=== PATIENT | female | born 1930 | race Caucasian/White ===

== ENCOUNTER 2018-10-18 09:25 | Inpatient (IN) ==
[2018-10-18] MEDS ORDERED: ONDANSETRON 4 MG/2 ML VIAL IV STA (10:14)
[2018-10-18] MEDS ORDERED: ONDANSETRON 4 MG/2 ML VIAL ONE (10:16)
[2018-10-18 11:18] LABS: Basophils % 0.2 % (0.0-0.8); Hematocrit 35.2 VOL% (35.7-47.0); Hemoglobin 12.8 GM/DL (12.0-16.0); Immature Granulocytes % 0.7 %; Immature Granulocytes Absolute 0.04 #; Lymphocytes # 0.6 10*3/uL (1.4-4.0); Lymphocytes % 9.7 % (21.3-54.2); Mean Corpuscular HGB Conc 36.4 GM/DL (32-36); Mean Corpuscular Hemoglobin 29 PG (27-34); Mean Corpuscular Volume 79.8 FL (87-102); Monocytes # 0.3 10*3/uL (0.11-0.8); Monocytes % 4.9 % (1.7-12.7); Neutrophils # 5.2 10*3/uL (1.4-7.4); Neutrophils % 84.5 % (38.7-73.9); Platelet Count 209 T/CUMM (130-400); Red Blood Count 4.41 MC/CUMM (3.8-5.5); Red Cell Distribution Width 12.5 % (9.3-17.3); White Blood Count 6.1 T/CUMM (4-12)
[2018-10-18 11:34] LABS: Bilirubin,Total 0.6 MG/DL (0.2-1.0); Calcium 9.8 MG/DL (8.5-10.1); Osmolality,Calculated 232.2 MOS/KG (273-304); Potassium 3.4 MMOL/L (3.5-5.1)
[2018-10-18] MEDS ORDERED: SODIUM CHLORIDE 0.9% 500 ML IV STA (11:53)
[2018-10-18 12:10] LABS: Apearance,Urine CLEAR (Clear); Bilirubin,Urine Negative (Negative); Blood, Urine Negative (Negative); Glucose,Urine (UA) Negative (Negative); Ketones,Urine 20 mg/dL (Negative); Mucus,Urine Occasional /LPF (Occasional); Nitrite,Urine Negative (Negative); Protein,Urine 100 MG/DL; RBC,Urine 1 /HPF (0-4); Squamous Epithelial Cell,Urine Occasional /HPF (0-10); Urine Color Yellow (Yellow); Urine Specific Gravity 1.015 (1.001-1.035); Urine Urobilinogen < 2.0 EU/DL (0.2-1.0); WBC,Urine 1 /HPF (0-6)
[2018-10-18] MEDS ORDERED: ACETAMINOPHEN 325 MG TABLET PO PRN (12:20)
[2018-10-18] MEDS ORDERED: PROMETHAZINE 25 MG TABLET PO PRN (12:20)
[2018-10-18] MEDS ORDERED: POTASSIUM CHLORIDE 20 MEQ TABLET PO STA (12:31)
[2018-10-18] MEDS: SODIUM CHLORIDE 0.9% 1,000 ML IV SCH (13:30)
[2018-10-18] MEDS ORDERED: MAGNESIUM SULF RIDER 2 GM in PREMIX 1 EACH IV ONE (13:31)
[2018-10-18] MEDS ORDERED: MAGNESIUM SULF RIDER 4 GM in PREMIX 1 EACH IV PRN (13:38)
[2018-10-18] MEDS ORDERED: POTASSIUM CHLORIDE RIDER 10 MEQ in PREMIX 1 EACH IV PRN (13:38)
[2018-10-18] MEDS ORDERED: MAGNESIUM SULF RIDER 2 GM in PREMIX 1 EACH IV PRN (13:38)
[2018-10-18] MEDS ORDERED: amLODIPine 10 MG TABLET PO ONE (14:18)
[2018-10-18] MEDS: NEBIVOLOL 5 MG TABLET PO SCH (15:02)
[2018-10-18] MEDS: hydrALAZINE 25 MG TABLET PO SCH (18:13)
[2018-10-18 18:53] LABS: Calcium 9.2 MG/DL (8.5-10.1)
[2018-10-18] MEDS: DOCUSATE SODIUM 100 MG CAPSULE PO SCH (20:47)
[2018-10-18] MEDS: ATORVASTATIN 40 MG TABLET PO SCH (20:47)
[2018-10-18] MEDS: OMEGA 3 ACID ETHYL ESTERS 1 GM CAPSULE PO SCH (20:47)
[2018-10-19] MEDS: SODIUM CHLORIDE 0.9% 1,000 ML IV SCH ×3 (00:15→16:57)
[2018-10-19 05:30] LABS: Basophils % 0.2 % (0.0-0.8); Eosinophils % 0.6 % (0.00-10.9); Hematocrit 29.3 VOL% (35.7-47.0); Hemoglobin 10.5 GM/DL (12.0-16.0); Immature Granulocytes % 0.4 %; Immature Granulocytes Absolute 0.02 #; Lymphocytes # 1.2 10*3/uL (1.4-4.0); Lymphocytes % 22.8 % (21.3-54.2); Mean Corpuscular HGB Conc 35.8 GM/DL (32-36); Mean Corpuscular Hemoglobin 29 PG (27-34); Mean Corpuscular Volume 81.4 FL (87-102); Mean Platelet Volume 9.4 FL (9.6-12.0); Monocytes # 0.5 10*3/uL (0.11-0.8); Monocytes % 10.1 % (1.7-12.7); Neutrophils # 3.5 10*3/uL (1.4-7.4); Neutrophils % 65.9 % (38.7-73.9); Platelet Count 188 T/CUMM (130-400); Red Cell Distribution Width 12.8 % (9.3-17.3); White Blood Count 5.4 T/CUMM (4-12)
[2018-10-19] MEDS: LEVOTHYROXINE 88 MCG TABLET PO SCH (05:33)
[2018-10-19 05:46] LABS: Calcium 8.3 MG/DL (8.5-10.1); Osmolality,Calculated 245.1 MOS/KG (273-304); Potassium 3.6 MMOL/L (3.5-5.1)
[2018-10-19] MEDS ORDERED: ISOSORBIDE MONONITRATE 30 MG TABLET PO SCH (09:00)
[2018-10-19] MEDS ORDERED: amLODIPine 10 MG TABLET PO SCH (09:00)
[2018-10-19] MEDS: DOCUSATE SODIUM 100 MG CAPSULE PO SCH ×2 (09:33→20:38)
[2018-10-19] MEDS: VITAMIN E 400 UNIT CAPSULE PO SCH (09:33)
[2018-10-19] MEDS: MULTIVITAMIN (CENTRUM) TABLET PO SCH (09:33)
[2018-10-19] MEDS: CHOLECALCIFEROL 1,000 UNIT TABLET PO SCH (09:33)
[2018-10-19] MEDS: NEBIVOLOL 5 MG TABLET PO SCH (09:33)
[2018-10-19] MEDS: hydrALAZINE 25 MG TABLET PO SCH ×3 (09:33→16:54)
[2018-10-19] MEDS: ASCORBIC ACID 500 MG TABLET PO SCH (09:34)
[2018-10-19] MEDS: PANTOPRAZOLE 40 MG TABLET PO SCH (09:34)
[2018-10-19] MEDS: CLOPIDOGREL 75 MG TABLET PO SCH (09:34)
[2018-10-19] MEDS: CYANOCOBALAMIN 500 MCG TABLET PO SCH (09:34)
[2018-10-19] MEDS: LOSARTAN 50 MG TABLET PO SCH (09:34)
[2018-10-19] MEDS: POLYETHYLENE GLYCOL POWDER 17 GM PACK PO SCH (13:51)
[2018-10-19] MEDS ORDERED: LOSARTAN 50 MG TABLET PO ONE (14:19)
[2018-10-19] MEDS: DILTIAZEM 30 MG TABLET PO SCH ×2 (16:54→20:37)
[2018-10-19] MEDS: OMEGA 3 ACID ETHYL ESTERS 1 GM CAPSULE PO SCH (20:38)
[2018-10-19] MEDS: ATORVASTATIN 40 MG TABLET PO SCH (20:38)
[2018-10-20] MEDS: SODIUM CHLORIDE 0.9% 1,000 ML IV SCH ×2 (00:10→08:13)
[2018-10-20 05:14] LABS: Basophils % 0.3 % (0.0-0.8); Eosinophils % 0.4 % (0.00-10.9); Hematocrit 31.5 VOL% (35.7-47.0); Immature Granulocytes % 0.4 %; Immature Granulocytes Absolute 0.03 #; Lymphocytes # 1.3 10*3/uL (1.4-4.0); Lymphocytes % 18.5 % (21.3-54.2); Mean Corpuscular HGB Conc 34.9 GM/DL (32-36); Mean Corpuscular Hemoglobin 29 PG (27-34); Mean Corpuscular Volume 83.1 FL (87-102); Mean Platelet Volume 9.6 FL (9.6-12.0); Monocytes # 0.5 10*3/uL (0.11-0.8); Monocytes % 7.7 % (1.7-12.7); Neutrophils % 72.7 % (38.7-73.9); Platelet Count 188 T/CUMM (130-400); Red Blood Count 3.79 MC/CUMM (3.8-5.5); Red Cell Distribution Width 13.4 % (9.3-17.3); White Blood Count 6.9 T/CUMM (4-12)
[2018-10-20 05:44] LABS: Calcium 8.3 MG/DL (8.5-10.1); Osmolality,Calculated 258.9 MOS/KG (273-304); Potassium 3.9 MMOL/L (3.5-5.1)
[2018-10-20] MEDS: LEVOTHYROXINE 88 MCG TABLET PO SCH (06:22)
[2018-10-20] MEDS: VITAMIN E 400 UNIT CAPSULE PO SCH (08:59)
[2018-10-20] MEDS: CHOLECALCIFEROL 1,000 UNIT TABLET PO SCH (08:59)
[2018-10-20] MEDS: CLOPIDOGREL 75 MG TABLET PO SCH (08:59)
[2018-10-20] MEDS: POLYETHYLENE GLYCOL POWDER 17 GM PACK PO SCH (08:59)
[2018-10-20] MEDS: CYANOCOBALAMIN 500 MCG TABLET PO SCH (09:00)
[2018-10-20] MEDS: LOSARTAN 50 MG TABLET PO SCH (09:00)
[2018-10-20] MEDS: ASCORBIC ACID 500 MG TABLET PO SCH (09:00)
[2018-10-20] MEDS: PANTOPRAZOLE 40 MG TABLET PO SCH (09:00)
[2018-10-20] MEDS: MULTIVITAMIN (CENTRUM) TABLET PO SCH (09:00)
[2018-10-20] MEDS: hydrALAZINE 25 MG TABLET PO SCH ×2 (09:00→15:14)
[2018-10-20] MEDS: DOCUSATE SODIUM 100 MG CAPSULE PO SCH (09:01)
[2018-10-20] MEDS: DILTIAZEM 30 MG TABLET PO SCH ×2 (09:05→15:14)
[2018-10-20 13:33] LABS: Osmolality, Urine 470 mOsm/kg (150 - 1150)
[2018-10-20 13:40] LABS: Osmolality, Serum 239 mOsm/kg (275 - 295)
[2018-10-20 16:04] VITALS: BP 162/60
== END 2018-10-20 17:08 | disposition home health service (06) | DRG 641 ==
LOC: N.EDINP 09:25 → N.ED 09:25 → SUPCPDRO 12:20 → N.4E 13:14
PROVIDERS: ADMIT Internal Medicine; ATTEND Internal Medicine

== ENCOUNTER 2019-10-17 19:49 | Inpatient (IN) ==
[2019-10-17] MEDS ORDERED: SODIUM CHLORIDE 0.9% 500 ML IV STA (19:56)
[2019-10-17] MEDS ORDERED: ALBUTEROL/IPRATROPIUM 3 ML NEB RESP TX STA (19:56)
[2019-10-17] MEDS ORDERED: cefTRIAXone 1,000 MG in SODIUM CHLORIDE 0.9% 100 ML IV STA (19:56)
[2019-10-17] MEDS ORDERED: IBUPROFEN 100 MG/5 ML UDCUP PO STA (19:57)
[2019-10-17 20:09] LABS: Basophils % 0.1 % (0.0-0.8); Hematocrit 35.5 VOL% (35.7-47.0); Hemoglobin 11.5 GM/DL (12.0-16.0); Immature Granulocytes % 0.4 %; Immature Granulocytes Absolute 0.05 #; Lymphocytes # 0.6 10*3/uL (1.4-4.0); Lymphocytes % 5.3 % (21.3-54.2); Mean Corpuscular HGB Conc 32.4 GM/DL (32-36); Mean Corpuscular Volume 86.8 FL (87-102); Mean Platelet Volume 8.7 FL (9.6-12.0); Neutrophils % 88.2 % (38.7-73.9); Platelet Count 259 T/CUMM (130-400); Red Blood Count 4.09 MC/CUMM (3.8-5.5); Red Cell Distribution Width 13.9 % (9.3-17.3); White Blood Count 11.9 T/CUMM (4-12)
[2019-10-17] MEDS: ALBUTEROL 2.5 MG/3 ML NEB RESP TX SCH (20:17)
[2019-10-17 20:31] LABS: Alanine Aminotransferase 45 U/L (13-56); Albumin 2.8 G/DL (3.4-5.0); Alkaline Phosphatase 71 U/L (45-117); Aspartate Amino Transferase 43 U/L (0-37); Bilirubin,Total < 0.39 MG/DL (0.2-1.0); Blood Urea Nitrogen 21 MG/DL (7-18); Calcium 8.6 MG/DL (8.5-10.1); Estimated Glom Filtration Rate 53 ML/MIN; Glucose 144 MG/DL (74-106); Osmolality,Calculated 269.5 MOS/KG (273-304); Total Protein 5.9 G/DL (6.4-8.3)
[2019-10-17] MEDS ORDERED: hydrALAZINE 20 MG/1 ML VIAL IV STA (20:56)
[2019-10-17 21:00] LABS: Apearance,Urine Slightly Hazy (Clear); Bacteria,Urine Occasional /HPF (Few); Bilirubin,Urine Negative (Negative); Blood, Urine Negative (Negative); Glucose,Urine (UA) Negative (Negative); Ketones,Urine Negative (Negative); Mucus,Urine Occasional /LPF (Occasional); Nitrite,Urine Negative (Negative); Protein,Urine 100 MG/DL; RBC,Urine 4 /HPF (0-4); Squamous Epithelial Cell,Urine Occasional /HPF (0-10); Urine Color Yellow (Yellow); Urine Specific Gravity 1.015 (1.001-1.035); Urine Urobilinogen < 2.0 EU/DL (0.2-1.0); WBC,Urine 3 /HPF (0-6)
[2019-10-17] MEDS ORDERED: ACETAMINOPHEN 500 MG TABLET PO STA (21:40)
[2019-10-17] MEDS ORDERED: ONDANSETRON 4 MG/2 ML VIAL IV PRN (22:13)
[2019-10-17] MEDS ORDERED: ACETAMINOPHEN 325 MG TABLET PO PRN (22:13)
[2019-10-17] MEDS ORDERED: hydrALAZINE 20 MG/1 ML VIAL IV PRN (22:13)
[2019-10-17] MEDS ORDERED: ALBUTEROL 2.5 MG/3 ML NEB RESP TX PRN (22:13)
[2019-10-17] MEDS ORDERED: MAGNESIUM SULF RIDER 2 GM in PREMIX 1 EACH IV ONE (22:19)
[2019-10-17] MEDS ORDERED: AZITHROMYCIN INJ 500 MG in SODIUM CHLORIDE 0.9% 250 ML IV SCH (23:00)
[2019-10-17] MEDS ORDERED: OSELTAMIVIR 30 MG CAPSULE PO SCH (23:00)
[2019-10-18] MEDS: ALBUTEROL/IPRATROPIUM 3 ML NEB RESP TX SCH ×4 (01:44→19:40)
[2019-10-18 08:03] LABS: Basophils % 0.1 % (0.0-0.8); Hematocrit 32.1 VOL% (35.7-47.0); Hemoglobin 10.3 GM/DL (12.0-16.0); Immature Granulocytes % 0.6 %; Immature Granulocytes Absolute 0.08 #; Lymphocytes % 7.6 % (21.3-54.2); Mean Corpuscular HGB Conc 32.1 GM/DL (32-36); Mean Corpuscular Volume 86.5 FL (87-102); Mean Platelet Volume 8.9 FL (9.6-12.0); Monocytes % 4.7 % (1.7-12.7); Platelet Count 220 T/CUMM (130-400); Red Blood Count 3.71 MC/CUMM (3.8-5.5); Red Cell Distribution Width 14.1 % (9.3-17.3); White Blood Count 13.3 T/CUMM (4-12)
[2019-10-18] MEDS ORDERED: OSELTAMIVIR 30 MG CAPSULE PO SCH (08:04)
[2019-10-18 08:29] LABS: Alanine Aminotransferase 34 U/L (13-56); Albumin 2.3 G/DL (3.4-5.0); Alkaline Phosphatase 57 U/L (45-117); Aspartate Amino Transferase 30 U/L (0-37); Bilirubin,Total < 0.39 MG/DL (0.2-1.0); Blood Urea Nitrogen 21 MG/DL (7-18); Calcium 8.4 MG/DL (8.5-10.1); Estimated Glom Filtration Rate 60 ML/MIN; Glucose 111 MG/DL (74-106)
[2019-10-18] MEDS: PANTOPRAZOLE 40 MG TABLET PO SCH (09:34)
[2019-10-18] MEDS: OSELTAMIVIR 75 MG CAPSULE PO SCH ×2 (09:34→20:58)
[2019-10-18] MEDS: ENOXAPARIN 40 MG/0.4 ML SYRINGE SUBCUT SCH (09:34)
[2019-10-18] MEDS ORDERED: POTASSIUM CHLORIDE 20 MEQ TABLET PO ONE (10:50)
[2019-10-18] MEDS: LACTATED RINGERS 1,000 ML IV SCH (15:44)
[2019-10-18] MEDS: ATORVASTATIN 40 MG TABLET PO SCH (20:58)
[2019-10-18] MEDS: IBUPROFEN 400 MG TABLET PO PRN (20:59)
[2019-10-18] MEDS: OMEGA 3 ACID ETHYL ESTERS 1 GM CAPSULE PO SCH (20:59)
[2019-10-18] MEDS: cefTRIAXone 1,000 MG in SYRINGE 1 EACH IV SCH (21:01)
[2019-10-19] MEDS: ALBUTEROL/IPRATROPIUM 3 ML NEB RESP TX SCH ×4 (00:40→18:50)
[2019-10-19 05:27] LABS: Basophils % 0.1 % (0.0-0.8); Hematocrit 30.1 VOL% (35.7-47.0); Hemoglobin 9.7 GM/DL (12.0-16.0); Immature Granulocytes % 0.8 %; Immature Granulocytes Absolute 0.09 #; Lymphocytes # 1.1 10*3/uL (1.4-4.0); Lymphocytes % 9.3 % (21.3-54.2); Mean Corpuscular HGB Conc 32.2 GM/DL (32-36); Mean Corpuscular Volume 86.7 FL (87-102); Mean Platelet Volume 9.2 FL (9.6-12.0); Monocytes % 3.6 % (1.7-12.7); Neutrophils % 86.2 % (38.7-73.9); Platelet Count 230 T/CUMM (130-400); Red Blood Count 3.47 MC/CUMM (3.8-5.5); Red Cell Distribution Width 14.3 % (9.3-17.3); White Blood Count 11.8 T/CUMM (4-12)
[2019-10-19 05:32] LABS: Calcium 8.7 MG/DL (8.5-10.1); Osmolality,Calculated 271.1 MOS/KG (273-304)
[2019-10-19] MEDS: LEVOTHYROXINE 88 MCG TABLET PO SCH (06:23)
[2019-10-19] MEDS: IBUPROFEN 400 MG TABLET PO PRN (06:24)
[2019-10-19] MEDS: CHOLECALCIFEROL 1,000 UNIT TABLET PO SCH (09:50)
[2019-10-19] MEDS: MULTIVITAMIN (CENTRUM) TABLET PO SCH (09:52)
[2019-10-19] MEDS: OSELTAMIVIR 75 MG CAPSULE PO SCH ×2 (09:54→21:09)
[2019-10-19] MEDS: AZITHROMYCIN 250 MG TABLET PO SCH (09:55)
[2019-10-19] MEDS: PANTOPRAZOLE 40 MG TABLET PO SCH (09:56)
[2019-10-19] MEDS: CYANOCOBALAMIN 500 MCG TABLET PO SCH (09:57)
[2019-10-19] MEDS: VITAMIN E 400 UNIT CAPSULE PO SCH (09:58)
[2019-10-19] MEDS: ASCORBIC ACID 500 MG TABLET PO SCH (09:59)
[2019-10-19] MEDS: amLODIPine 10 MG TABLET PO SCH (10:00)
[2019-10-19] MEDS: ISOSORBIDE MONONITRATE 30 MG TABLET PO SCH (10:00)
[2019-10-19] MEDS: CLOPIDOGREL 75 MG TABLET PO SCH (10:01)
[2019-10-19] MEDS: ENOXAPARIN 40 MG/0.4 ML SYRINGE SUBCUT SCH (10:04)
[2019-10-19] MEDS: POLYETHYLENE GLYCOL POWDER 17 GM PACK PO SCH (10:09)
[2019-10-19] MEDS ORDERED: VANCOMYCIN INJ 1,000 MG in SODIUM CHLORIDE 0.9% 250 ML IV SCH (13:00)
[2019-10-19] MEDS: LACTATED RINGERS 1,000 ML IV SCH (14:19)
[2019-10-19] MEDS: ATORVASTATIN 40 MG TABLET PO SCH (21:09)
[2019-10-19] MEDS: cefTRIAXone 1,000 MG in SYRINGE 1 EACH IV SCH (21:09)
[2019-10-19] MEDS: OMEGA 3 ACID ETHYL ESTERS 1 GM CAPSULE PO SCH (21:10)
[2019-10-20] MEDS: ALBUTEROL/IPRATROPIUM 3 ML NEB RESP TX SCH ×3 (00:20→12:12)
[2019-10-20] MEDS: LEVOTHYROXINE 88 MCG TABLET PO SCH (05:34)
[2019-10-20] MEDS ORDERED: LOSARTAN 50 MG TABLET PO SCH (09:00)
[2019-10-20] MEDS: CHOLECALCIFEROL 1,000 UNIT TABLET PO SCH (09:39)
[2019-10-20] MEDS: ASCORBIC ACID 500 MG TABLET PO SCH (09:39)
[2019-10-20] MEDS: CLOPIDOGREL 75 MG TABLET PO SCH (09:40)
[2019-10-20] MEDS: AZITHROMYCIN 250 MG TABLET PO SCH (09:40)
[2019-10-20] MEDS: ISOSORBIDE MONONITRATE 30 MG TABLET PO SCH (09:40)
[2019-10-20] MEDS: amLODIPine 10 MG TABLET PO SCH (09:41)
[2019-10-20] MEDS: MULTIVITAMIN (CENTRUM) TABLET PO SCH (09:41)
[2019-10-20] MEDS: VITAMIN E 400 UNIT CAPSULE PO SCH (09:41)
[2019-10-20] MEDS: CYANOCOBALAMIN 500 MCG TABLET PO SCH (09:41)
[2019-10-20] MEDS: OSELTAMIVIR 75 MG CAPSULE PO SCH (09:41)
[2019-10-20] MEDS: PANTOPRAZOLE 40 MG TABLET PO SCH (09:41)
[2019-10-20] MEDS: ENOXAPARIN 40 MG/0.4 ML SYRINGE SUBCUT SCH (09:43)
[2019-10-20] MEDS: POLYETHYLENE GLYCOL POWDER 17 GM PACK PO SCH (09:43)
[2019-10-20] MEDS ORDERED: hydrALAZINE 25 MG TABLET PO SCH (10:00)
[2019-10-20 12:37] VITALS: BP 141/62
== END 2019-10-20 13:50 | disposition home health service (06) | DRG 195 ==
LOC: EDBD → EDUNIT# → N.ED 19:49 → N.EDINP 22:13 → SUATTDRO 22:13 → N.5E 22:43
PROVIDERS: ADMIT Family Medicine; ATTEND Internal Medicine